=== PATIENT | male | born 1955 | race Caucasian/White ===

== ENCOUNTER → 2017-04-15 13:55 | Outpatient (CLI) | payer OTHER, SELFPAY ==
--- NOTE | 2017-04-15 15:14 | NEURO ---
NCS and/or EMG Patient Report Ordering Doctor: Torey Aguayo DATE OF SERVICE: 04/15/17 Yong Thurman is a 61 year old male who presents with chief complaint of right hand numbness. Electrodiagnostic Findings: Prolonged right median motor latency with low amplitude and delayed conduction velocity. Normal ulnar motor response, including conduction across the elbow. Absent right median sensory latency at the wrist. Needle EMG testing reveals 1+ fibrillations in the abductor pollicis brevis Electrodiagnostic Impression: This is an abnormal study 1) Findings demonstrate right median mononeuropathy. This is consistent with an advanced right carpal tunnel syndrome If there are any questions, please do not hesitate to contact me.
== END ==
PROVIDERS: Family Provider Internal Medicine; PCP Internal Medicine; Visit Provider Orthopaedic Surgery
DX: G56.01 Carpal tunnel syndrome, right upper limb (principal)
CPT/HCPCS: 95886; 95909

== ENCOUNTER → 2022-07-21 | Outpatient (CLI) | payer MEDICARE, OTHER, SELFPAY ==
--- NOTE | 2022-07-21 | KNEE_PTH ---
PATIENT: JOCELYN WELLS [facility] U#:[id number] AGE/SX: 66/M ROOM: RE07/21/[address]: Dr. Cassius Hebert MD : 1955 BED: DIS: 07/21/2022 SPEC #: [id number] RECD: 07/21/22 15:01 STATUS: TROY REBrenda #: [id number] GIULIA: 07/21/22 00:[address]: Cassius Hebert DEPT: SURGICAL PATHOLOGY RECD BY: Tani Rivas ENTERED: 07/22/22 11:51 SP TYPE: TOTAL KNEE OTHR DR: Dr. Alden Lawrence MD [facility] Tissues: Knee, NOS Procedures: Decalcification bone/plaque Surgery Specimen Level IV HEADER OPERATION: Right total knee replacement PRE-OP DIAGNOSIS: Grade 4 osteoarthritis right knee TISSUE SUBMITTED: Bone and soft tissue right knee MICROSCOPIC DIAGNOSIS Bone and tissue of right knee, total knee resection: Severe degenerative joint disease. Mild synovial hyperplasia. AM:mary 07/25/2022 MICROSCOPIC DESCRIPTION Slides are reviewed. GROSS DESCRIPTION Received is one container designated bone and tissue right knee. The specimen consists of multiple fragments of barba-yellow bone measuring in aggregate 16.0 x 11.0 x 2.0 cm. Also in the specimen container are multiple fragments of yellow-white soft tissue measuring in aggregate 7.5 x 5.0 x 3.0 cm. A number of bony fragments contain articular surfaces consistent with tibial plateau and femoral condyle and displaying prominent osteophyte formation, eburnation and bone erosion. Melter Assistant sections are submitted in two cassettes as follows: 1 - soft tissue, 2 - bone after decalcification. / AM:mary 07/22/2022 TC:5 CPT: 31896, 94772
== END | disposition home or self-care (01) ==
LOC: LABSPEC 15:12
PROVIDERS: PCP Internal Medicine; Referring Provider Orthopaedic Surgery; Visit Provider Orthopaedic Surgery
DX: M17.11 Unilateral primary osteoarthritis, right knee (principal)
CPT/HCPCS: 88305; 88311

== ENCOUNTER → 2023-05-25 | Outpatient (CLI) | payer MEDICARE, OTHER, SELFPAY ==
--- NOTE | 2023-05-25 | KNEE_PTH ---
PATHOLOGY RESULTS PATIENT: JOCELYN WELLS [facility] U[facility][id number] AGE/SX: 67/M ROOM: RE05/25/[address]: Dr. Cassius Hebert MD : 1955 BED: DIS: 05/25/2023 SPEC #: [id number] RECD: 05/26/23 08:09 STATUS: TROY REBrenda #: [id number] GIULIA: 05/25/23 00:[address]: Cassius Hebert DEPT: SURGICAL PATHOLOGY RECD BY: Tresa Flores ENTERED: 05/26/23 08:09 SP TYPE: TOTAL KNEE OTHR DR: Dr. Alden Lawrence MD [facility] Tissues: Knee, NOS Procedures: Decalcification bone/plaque Surgery Specimen Level IV HEADER OPERATION: Total knee arthroplasty PRE-OP DIAGNOSIS: Severe grade IV osteoarthritis Left knee TISSUE SUBMITTED: Left knee bone and soft tissue MICROSCOPIC DIAGNOSIS Bone and soft tissue, left knee, total knee replacement/resection: Pieces of bone with degenerative osteoarthritic changes. Fibroadipose tissue, fibroconnective tissue and reactive synovial tissue. ALLI: 05/29/2023 MICROSCOPIC DESCRIPTION Slides are reviewed. GROSS DESCRIPTION Received is one container designated bone and soft tissue left knee. The specimen consists of multiple fragments of barba-yellow bone measuring in aggregate 13.0 x 10.5 x 3.0 cm. A small piece of adipose tissue attached to one of the pieces measures 2.0 x 2.0 x 1.0 cm. A number of bony fragments contain articular surfaces consistent with tibial plateau and femoral condyle and displaying prominent osteophyte formation, eburnation and bone erosion. Ornamental Machine Operator sections are submitted in two cassettes as follows: 1 - soft tissue, 2 - bone after decalcification. / ALLI:mary 05/26/2023 : 5 [facility]: [id number], [id number]
== END | disposition home or self-care (01) ==
LOC: LABSPEC 15:38
PROVIDERS: PCP Internal Medicine; Referring Provider Orthopaedic Surgery; Visit Provider Orthopaedic Surgery
DX: M17.12 Unilateral primary osteoarthritis, left knee (principal)
CPT/HCPCS: 88305; 88311